=== PATIENT | male | born 1950 | race Caucasian/White ===

== ENCOUNTER → 2021-11-29 | Outpatient (CLI) | payer BC ==
[~2021-11-29] MED LIST: BREO ELLIPTA 11 EACH INH; CBD OIL PO; CLARITIN-D 241 EACH PO; CORLANOR 7.5 MG PO; COZAAR25 MG PO; CRESTOR20 MG PO; ECOTRIN81 MG PO; FLOMAX0.4 MG PO; GAS RELIEF180 MG PO; IMODIUM CAP 2 MG2 MG PO; LEXAPRO10 MG PO; MARINOL5 MG PO; PHENERGAN 25 MG25 M1 PO; PLAVIX 75 MG TA75 MG PO; PRILOSEC OTC20 MG PO; PROTONIX40 MG PO; RESTORIL15 MG PO; TINDAMAX500 MG PO; TINIDAZOLE500 MG PO; VENTOLIN HFA 66.7 GM INH; VITAMIN D32000 UNI1 PO; VSL#3 CAPSULE1 EACH PO; ZYLOPRIM 100 M100 MG PO; [UNRECOGNIZED DRUG - OTHER] PO
== END ==
LOC: HEART 5 09:22
DX: R06.02 Shortness of breath (principal)
CPT/HCPCS: 94010

== ENCOUNTER → 2021-11-29 | Outpatient (CLI) | payer OTHER | LOC: EXRD 10:40 | DX: R06.02 Shortness of breath (principal); R91.1 Solitary pulmonary nodule | CPT/HCPCS: 71046 ==

== ENCOUNTER → 2022-01-10 | Outpatient (CLI) | payer OTHER | LOC: KOH-I 01-08 15:30 | DX: R91.8 Other nonspecific abnormal finding of lung field (principal) | CPT/HCPCS: 71250 ==